=== PATIENT | female | born 1990 | race American Indian/Alaskan Native ===

== ENCOUNTER 2021-02-08 16:49 | Outpatient (CLI) | payer OTHER ==
[2021-02-08] MEDS ORDERED: LACTATED RINGERS 1,000 ML IV ONE (18:55)
[2021-02-08 19:50] VITALS: BP 104/62
[2021-02-08 19:53] LABS: Bacteria,Urine 2+ /HPF (Negative); Bilirubin,Urine NEG (Negative); Blood,Urine NEG (Negative); Color,Urine Yellow (Yellow); Mucus,Urine FEW /HPF; Protein,Urine <15 mg/dL mg/dL (Negative); Urobilinogen,Urine < 2.0 mg/dL (<2.0)
[2021-02-08] MEDS ORDERED: LIDOCAINE-MPF (1%) 10 MG/1 ML VIAL 5 ML INFILTRATI ONE (20:41)
== END 2021-02-08 21:25 | disposition home or self-care (01) ==
LOC: TRG 16:49 → APU 17:03 → TRG 21:25
PROVIDERS: ATTEND Obstetrics & Gynecology
DX: O26.853 Spotting complicating pregnancy, third trimester (principal); Z3A.35 35 weeks gestation of pregnancy
CPT/HCPCS: 59025; 81001; 87086; J0696

== ENCOUNTER 2021-03-09 11:00 | Outpatient (CLI) | payer OTHER ==
[2021-03-09 06:21] VITALS: BP 104/74
[2021-03-09 07:14] LABS: Hematocrit 34.5 % (30.3-42.9); Hemoglobin 11.8 gm/dl (10.1-14.3); Mean Corpuscular HGB Conc 34 % (30-34); Mean Corpuscular Volume 83 fl (79-97); Platelet Count 206 K/mm3 (140-440); Red Blood Count 4.15 M/mm3 (3.65-5.03)
--- NOTE | 2021-03-09 08:32 | Ultrasound Report ---
ULTRASOUND BIOPHYSICAL PROFILE ULTRASOUND OB LIMITED INDICATION: wellbeing TECHNIQUE: Transabdominal ultrasound imaging. COMPARISON: None FINDINGS: breathing movement = 2 Gross body movement = 2 tone = 2 Qualitative amniotic fluid volume = 2 Total biophysical score = 8/8 Amniotic fluid index is 7.6 cm. Presentation is cephalic. heart rate is 124 beats per minute. IMPRESSION: biophysical profile equals 8/8. Cephalic position. Signer Name: Dave Dominguez Jr, MD Signed: 03/09/2021 8:27 AM Workstation Name: [id number]
[~2021-03-09 11:00] MED LIST: BICITRA ORAL LIQD 30ML PO SCH; FAMOTIDINE 20 MG/2 ML INJ IV SCH; LACTATED RINGERS 1,000 ML IV SCH; METOCLOPRAMIDE 10 MG/2 ML INJ IV SCH; OXYTOCIN DRIP 30 UNITS/500 ML BAG IV SCH
[2021-03-09 12:56] LABS: Platelet Estimate Consistent w Auto; RBC Morphology Normal; Total Cells Counted 100
== END 2021-03-09 23:59 | disposition home or self-care (01) ==
LOC: TRG 11:00 → EDSTATUS 11:30 → TRG 23:59
PROVIDERS: ATTEND Obstetrics & Gynecology
DX: O99.013 Anemia complicating pregnancy, third trimester (principal); O82 Encounter for cesarean delivery without indication; Z3A.39 39 weeks gestation of pregnancy
CPT/HCPCS: 36415; 59025; 76815; 76819; 85007; 85025; G0378

== ENCOUNTER 2021-03-13 07:15 | Inpatient (IN) | payer OTHER ==
[~2021-03-13 07:15] MED LIST changes: -BICITRA ORAL LIQD 30ML PO SCH; -FAMOTIDINE 20 MG/2 ML INJ IV SCH; -LACTATED RINGERS 1,000 ML IV SCH; -METOCLOPRAMIDE 10 MG/2 ML INJ IV SCH; -OXYTOCIN DRIP 30 UNITS/500 ML BAG IV SCH; +WATER FOR IRRIG STERILE 1,500 ML BOTTLE IR ONE
[2021-03-13] MEDS ORDERED: OXYTOCIN 10 UNIT/1 ML INJ IM PRN (08:12)
[2021-03-13] MEDS ORDERED: miSOPROStol 200 MCG TAB PR PRN (08:12)
[2021-03-13] MEDS ORDERED: NALOXONE 0.4 MG/1 ML INJ IV PRN ×2 (08:12→22:45)
[2021-03-13] MEDS ORDERED: METHYLERGONOVINE MALEATE 0.2 MG/ML VIAL IM PRN (08:12)
[2021-03-13] MEDS ORDERED: TERBUTALINE 1 MG/1 ML INJ SUB-Q PRN (08:12)
[2021-03-13] MEDS ORDERED: LIDOCAINE (2%) 20 MG/1 ML VIAL 20 ML MDV INFILTRATI NR (08:12)
[2021-03-13] MEDS ORDERED: LOPERAMIDE 2 MG CAP PO PRN (08:12)
[2021-03-13] MEDS ORDERED: ONDANSETRON 4 MG/2 ML INJ IV PRN ×2 (08:30→22:45)
[2021-03-13] MEDS ORDERED: fentaNYL 100 MCG/2 ML INJ IV PRN (08:30)
[2021-03-13] MEDS ORDERED: CARBOPROST TROMETHAMINE 250 MCG/1 ML INJ IM PRN (08:30)
[2021-03-13] MEDS ORDERED: ePHEDrine SULFATE 50 MG/1 ML INJ IV PRN ×2 (08:30→11:31)
[2021-03-13] MEDS ORDERED: BUTORPHANOL 2 MG/1 ML INJ IV PRN (08:30)
[2021-03-13] MEDS ORDERED: ACETAMINOPHEN 325 MG TAB PO PRN (08:30)
[2021-03-13] MEDS ORDERED: OXYTOCIN DRIP 30 UNITS/500 ML BAG IV SCH ×3 (09:00→23:00)
[2021-03-13] MEDS: LACTATED RINGERS 1,000 ML IV SCH ×2 (09:37→17:23)
[2021-03-13 09:52] LABS: Hematocrit 37.3 % (30.3-42.9); Mean Corpuscular HGB Conc 35 % (30-34); Mean Corpuscular Volume 83 fl (79-97); Platelet Count 216 K/mm3 (140-440); Red Blood Count 4.48 M/mm3 (3.65-5.03); Red Cell Distribution Width 16.8 % (13.2-15.2)
[2021-03-13] MEDS ORDERED: NALOXONE 2 MG/2 ML INJ IV PRN (11:31)
[2021-03-13] MEDS: fentaNYL-BUPIV 2 MCG/ML-0.125% 200 MCG/100 ML BAG EPIDURAL SCH ×2 (12:45→21:25)
--- NOTE | 2021-03-13 13:23 | Anesthesia Consultation ---
Anesthesia Consult and Med Hx Date of service: 03/13/21 - Airway Anesthetic Teeth Evaluation: Good ROM Head & Neck: Adequate Mental/Hyoid Distance: Adequate Mallampati Class: Class II Intubation Access Assessment: Good - Pulmonary Exam CTA: Yes - Cardiac Exam Cardiac Exam: RRR - Pre-Operative Health Status ASA Pre-Surgery Classification: ASA2 Proposed Anesthetic Plan: Epidural - Pulmonary Hx Smoking: No Hx Asthma: No Hx Respiratory Symptoms: No SOB: No COPD: No Home Oxygen Therapy: No Hx Pneumonia: No Hx Sleep Apnea: No - Cardiovascular System Hx Hypertension: No Hx Coronary Artery Disease: No Hx Heart Attack/AMI: No Hx Angina: No Hx Percutaneous Transluminal Coronary Angioplasty (PTCA): No Hx Cardia Arrhythmia: No Hx Pacemaker: No Hx Internal Defibrillator: No Hx Valvular Heart Disease: No Hx Heart Murmur: No Hx Peripheral Vascular Disease: No - Central Nervous System Hx Neuromuscular Disorder: No Hx Seizures: No CVA: No Hx Back Pain: Yes Hx Psychiatric Problems: No - Gastrointestinal Hx Ulcer: No Hx Gastroesophageal Reflux Disease: Yes - Endocrine Hx Renal Disease: No Hx End Stage Renal Disease: No Hx Cirrhosis: No Hx Liver Disease: No Hx Insulin Dependent Diabetes: No Hx Non-Insulin Dependent Diabetes: No Hx Thyroid Disease: No Hx Hypothyroidism: No Hx Hyperthyroidism: No - Hematic Hx Anemia: No Hx Sickle Cell Disease: No - Other Systems Hx Alcohol Use: No Hx Substance Use: No Hx Cancer: No Hx Obesity: No
--- NOTE | 2021-03-13 13:24 | Progress Note ---
Labor Epidural - Labor Epidural Start Time: 11:45 Stop Time: 11:56 Performed by:: JOZEF TIRADO Procedure: Patient is requesting a laboring epidural for laboring pain. Patient IDed, H&P reviewed, all questions and concerns were answered, and consent was signed. Timeout was performed at bedside. Patient in sitting position. Sterile prep and drape was performed. [3] ml of 1% lidocaine skin wheal at L[3]- L [4]. 18- gauge Bridgette epidural needle was advanced to loss of resistance with saline technique 6cm. Negative CSF negative blood. Epidural catheter advanced to [10] centimeters. [NEGATIVE] Aspiration [NEGATIVE] test dose. Sterile dressing applied. Patient tolerated procedure.
--- NOTE | 2021-03-13 13:24 | History and Physical Report ---
History of Present Illness Date of examination: 03/13/21 Date of admission: 03/13/21 08:12 Chief complaint: contractions History of present illness: Pt is a 30 year old female BREE 03/10/21 at 40w3d who presents with regular painful contractions and Category II tracing. She has had care at [facility] since 11 wks complicated by genital herpes, hypoglycemic episodes, eczema, LSIL pap, and sickle cell trait. She is GBS negative. Past History Past Medical History: other (Eczema ) Past Surgical History: no surgical history [employer] History: herpes (without lesion or prodrome ) Family/Genetic History: none Social history: no significant social history - Obstetrical History Expected Date of Delivery: 03/10/21 Actual Gestation: 40 Week(s) 3 Day(s) : 2 Para: 0 Hx # Term Pregnancies: 0 Number of Pregnancies: 0 Spontaneous Abortions: 0 Induced : 1 Number of Living Children: 0 Medications and Allergies Allergies Allergy/AdvReac Type Severity Reaction Status Date / Time No Known Allergies Allergy Verified 02/08/21 18:52 Home Medications Medication Instructions Recorded Confirmed Last Taken Type Pnv,Calcium 72/Iron/Folic Acid 1 each PO DAILY 03/13/21 03/13/21 03/11/21 20:00 History [ Plus Tablet] Active Meds: Active Medications Acetaminophen (Acetaminophen 325 Mg Tab) 650 mg PO Q4H PRN PRN Reason: Pain, Mild (1-3) Butorphanol Tartrate (Butorphanol 2 Mg/1 Ml Inj) 1 mg IV Q2H PRN PRN Reason: Pain, Moderate(4-6) LABOR PAIN Carboprost Tromethamine (Carboprost Tromethamine 250 Mcg/1 Ml Inj) 250 mcg IM ONCE PRN PRN Reason: Uterine Bleeding Stop: 03/14/21 08:29 Ephedrine Sulfate (Ephedrine Sulfate 50 Mg/1 Ml Inj) 10 mg IV Q2M PRN PRN Reason: Hypotension Fentanyl (Fentanyl 100 Mcg/2 Ml Inj) 100 mcg IV Q2H PRN PRN Reason: Pain,Severe (7-10) LABOR PAIN Last Admin: 03/13/21 09:38 Dose: 100 mcg Documented by: Oxytocin/Sodium Chloride (Pitocin/Ns 30 Unit/500ml) 30 units in 500 mls @ 2 mls/hr IV TITR KIRAN; Protocol Last Admin: 03/13/21 12:59 Dose: 4 ml/hr, 4 mls/hr Documented by: Lactated Ringer's (Lactated Ringers) 1,000 mls @ 125 mls/hr IV DIRECT KIRAN Last Admin: 03/13/21 09:37 Dose: 999 mls/hr Documented by: Oxytocin/Sodium Chloride (Pitocin/Ns 30 Unit/500ml) 30 units in 500 mls @ 40 mls/hr IV TITR KIRAN; Protocol Fentanyl/Bupivacaine/Sodium Chlor (Fentanyl-Bupiv 2 Mcg/Ml-0.125%) 200 mcg in 100 mls @ 12 mls/hr EPIDURAL TITR KIRAN; Protocol Last Admin: 03/13/21 12:45 Dose: 12 mls/hr Documented by: Lidocaine (Lidocaine (2%) 20 Mg/1 Ml Vial 20 Ml Mdv) 20 ml INFILTRATI ONCE NR Stop: 03/13/21 20:00 Loperamide HCl (Loperamide 2 Mg Cap) 2 mg PO ONCE PRN PRN Reason: give with Hemabate Stop: 03/14/21 08:11 Methylergonovine Maleate (Methylergonovine Maleate 0.2 Mg/Ml Vial) 0.2 mg IM ONCE PRN PRN Reason: Uterine Bleeding Stop: 03/14/21 08:11 Mineral Oil (Mineral Oil 30 Ml Oral Liqd) 30 ml PO QHS PRN PRN Reason: Constipation Misoprostol (Misoprostol 200 Mcg Tab) 800 mcg IA ONCE PRN PRN Reason: Uterine Bleeding Stop: 03/14/21 08:11 Naloxone HCl (Naloxone 2 Mg/2 Ml Inj) 0.2 mg IV Q5M PRN PRN Reason: Respiratory sedation Ondansetron HCl (Ondansetron 4 Mg/2 Ml Inj) 4 mg IV Q8H PRN PRN Reason: Nausea And Vomiting Oxytocin (Oxytocin 10 Unit/1 Ml Inj) 10 unit IM ONCE PRN PRN Reason: Uterine Bleeding Stop: 03/14/21 08:11 Terbutaline Sulfate (Terbutaline 1 Mg/1 Ml Inj) 0.25 mg SUB-Q ONCE PRN PRN Reason: Hyperstimulation/Hypertonicity Stop: 03/14/21 08:11 Review of Systems All systems: negative - Vital Signs Vital signs: Vital Signs Pulse BP Pulse Ox 88 98/72 84 03/13/21 07:47 03/13/21 07:47 03/13/21 07:47 Temp Pulse Resp BP Pulse Ox 98.1 F 95 H 20 88/54 94 03/13/21 11:59 03/13/21 13:20 03/13/21 11:59 03/13/21 13:18 03/13/21 13:20 - Physical Exam Breasts: Positive: deferred Abdomen: Positive: soft (gravid ) Uterus: Positive: enlarged (gravid ) Extremities: Positive: normal - Obstetrical FHR: category 2 Cervical Dilatation: 4 Uterine Contraction Pattern: Regular Uterine Tone Measurement Phase: Resting Uterine Contraction Intensity: Strong/Firm Results Result Diagrams: 03/13/21 09:00 Abnormal lab results 03/13/21 03/13/21 Range/Units 09:00 09:00 MCHC 35 H (30-34) % RDW 16.8 H (13.2-15.2) % Syphilis IgG Antibody Reactive A (NonReactive) All other labs normal. Assessment and Plan A: IUP at 40w3d Active Labor Genital Herpes Eczema LSIL pap Sickle cell trait GBS negative P: Admit to labor and delivery Routine intrapartum care Valtrex while laboring Closely monitor maternal and status
[2021-03-13] MEDS ORDERED: MINERAL OIL 30 ML ORAL LIQD PO PRN (22:00)
[2021-03-13] MEDS ORDERED: FAMOTIDINE 20 MG/2 ML INJ IV ONE (22:06)
[2021-03-13] MEDS ORDERED: BICITRA ORAL LIQD 30ML PO ONE (22:06)
[2021-03-13] MEDS ORDERED: METOCLOPRAMIDE 10 MG/2 ML INJ IV ONE (22:06)
[2021-03-13] MEDS ORDERED: LACTATED RINGERS 1,000 ML IV SCH (22:15)
[2021-03-13] MEDS ORDERED: LIDOCAINE MPF (2%) 20 MG/1 ML VIAL 5 ML ONE ×3 (22:28)
--- NOTE | 2021-03-13 22:43 | Anesthesia Day of Surgery ---
Anesthesia Day of Surgery - Day of Surgery Patient Examined: Yes Patient H&P Reviewed: Yes Patient is NPO: Yes Beta Blockers: No Cardiac Clearance: No Pulmonary Clearance: No Jose David's Test: Negative
[2021-03-13] MEDS ORDERED: HYDROmorphone 1 MG/1 ML INJ IV PRN (22:45)
[2021-03-13] MEDS ORDERED: ceFAZolin/Water 2 GM/20 ML 2 GM/20 ML SYRINGE IV NR (23:00)
[2021-03-13] MEDS ORDERED: SODIUM CHLORIDE 0.9% IRR 1,500 ML BOTTLE IR ONE (23:38)
[2021-03-13] MEDS ORDERED: KETOROLAC 30 MG/1 ML INJ ONE (23:54)
[2021-03-13] MEDS ORDERED: ONDANSETRON 4 MG/2 ML INJ ONE ×2 (23:54)
[2021-03-14] MEDS ORDERED: OXYTOCIN 10 UNIT/1 ML INJ ONE (00:33)
[2021-03-14] MEDS ORDERED: LACTATED RINGERS 1,000 ML ONE (00:57)
[2021-03-14] MEDS ORDERED: BUPIVACAINE/PF (0.5%) 5 MG/1 ML 30 ML VIAL INFILTRATI ONE (01:14)
--- NOTE | 2021-03-14 01:52 | Procedure Note ---
OB Delivery Note - Delivery Date of Delivery: 03/14/21 Surgeon: DESTINEY SANDOVAL - Section Preop diagnosis: arrest of descent Postop diagnosis: same section procedure: section, primary low transverse Disposition: PACU Complications: intra-op hemorrhage Narrative: Please see operative report - A at 1 minute: 7 at 5 minutes: 8 Infant Gender: Male (3310g (7lb 5oz) @ 0016 am)
--- NOTE | 2021-03-14 01:53 | Operative Report ---
Operative Report Operative Report: Date of procedure: March 14, 2021 Preoperative diagnosis: 1) IUP at 40w3d 2) Arrest of Descent Postoperative diagnosis: Same 3) Cephalopelvic Disproportion 4) Intraoperative hemorrhage Procedure: Primary classical section Surgeon: Tanika Vicente M.D. Anesthesia: Regional Findings: 1) Viable male , Apgars 7 and 8, weight 3310 g, (7 lb 5 oz) in cephalic presentation 2) Normal-appearing uterus ovaries and tubes Estimated blood loss: 1205 mL by QBL IV fluids: 800 mL Urine output: 400 mL, blood tinged prior to the procedure, and blood tinged at the end of the procedure Drains: [place] to gravity Specimens: None Complications:None. Counts correct x 3 Disposition: Stable to PACU Indication for procedure: Pt is a 30 year old at 40w3d who presented in active labor, progressed to complete dilation and +1 station and arrested there despite adequate contractility. The decision was made to proceed with delivery. Operation in detail: After the risks, benefits, alternatives and complications were explained to the patient she gave informed consent for the procedure. She was subsequently taken to the operating room where regional anesthesia was noted to be adequate. She was placed in the dorsal supine position with leftward tilt and prepped and draped in a normal sterile fashion. heart tones were noted prior to incision. A timeout was performed. A Pfannenstiel skin incision was made with the knife and carried down to the layer of the fascia with the Bovie. The fascia was incised in the midline and the fascial incision was extended bilaterally with the Bovie. The fascial incision was then stretched. The rectus muscles were then in the midl ine and partially transected for adequate visualization. The peritoneum was then entered bluntly. The peritoneal incision was extended with good visualization of the bladder. The peritoneal incision was then stretched. An Mio retractor was placed. The bladder blade was then placed. A transverse incision was made in the lower uterine segment with a knife and extended bilaterally with the bandage scissors with the right shoulder visible at the hysterotomy. The head was noted to be wedged in the pelvic despite multiple attempts to deliver it including the assistance of a gloved vaginal hand. At this time, the knife was used to create a vertical infraumbilical incision and a vertical uterine incision. The buttocks and legs were delivered, followed by delivery of the torso and head. bulb suctioned at delivery. Cord clamped and cut. handed to NICU staff in attendance. Cord blood was collected. The placenta was then delivered manually. The uterus was then exteriorized and cleared of all clots and debris. The vertical portion of the hysterotomy was reapproximated in 3 layers of 0 Monocryl in a running locked fashion. The horizontal portion hysterotomy was then reapproximated with 0 Monocryl in a running locked fashion, followed by a second imbricated layer of the same suture. The hysterotomy was inspected and hemostasis was noted. The gutters were irrigated and cleared of all clots and debris. The hysterotomy was again inspected and noted to be hemostatic. The Mio retractor was removed. The uterus was placed back into the peritoneal cavity. Surgicel was placed over the hysterotomy. Intercede was placed over the anterior surface of the uterus. Surgicel was placed over the rectus muscles. The inferior portion of the rectus muscles were reapproximated by a mattress suture of 0 Monocryl. The vertical portion of the fascia was reapproximated with 0 PDS in a running fashion. The horizontal portion of the fascia was reapproximated with 0 PDS in a running fashion. The skin was reapproximated with maribeth. The incision was then covered with a pressure dressing. The procedure was then ended. The patient tolerated the procedure well and was taken to the PACU in stable condition. All instrument, lap, and needle counts were correct 3. This patient should not labor in future pregnancies, and should be delivered by repeat section.
[2021-03-14] MEDS ORDERED: LANOLIN/ZINC/DIMETHICONE (LANSINOH) 7 GM TP PRN (03:52)
[2021-03-14] MEDS ORDERED: NALOXONE 0.4 MG/1 ML INJ IV PRN (03:52)
[2021-03-14] MEDS ORDERED: OXYTOCIN DRIP 30 UNITS/500 ML BAG IV SCH (03:52)
[2021-03-14] MEDS ORDERED: SIMETHICONE 80 MG CHEW TAB PO PRN (03:52)
[2021-03-14] MEDS ORDERED: MAGNESIUM HYDROXIDE (MOM) ORAL LIQD UDC PO PRN (03:52)
[2021-03-14] MEDS ORDERED: D5W/LACTATED RINGERS 1,000 ML IV SCH (03:52)
[2021-03-14] MEDS ORDERED: WITCH HAZEL/ GLYCERIN PAD TP PRN (03:52)
[2021-03-14] MEDS: HYDROmorphone 1 MG/1 ML INJ IV PRN ×4 (04:02→19:58)
[2021-03-14] MEDS: ceFAZolin/NS 1 GM/50 ML 1 GM/50 ML BAG IV SCH ×2 (05:54→15:45)
[2021-03-14 18:51] LABS: Hematocrit 27.5 % (30.3-42.9); Hemoglobin 9.1 gm/dl (10.1-14.3)
--- NOTE | 2021-03-14 23:45 | Post Anesthesia Evaluation ---
- Post Anesthesia Evaluation Patient Participated: Yes Airway Patent: Yes Stable Respiratory Function: Yes Nausea/Vomiting: No Temp > 96.8F: Yes Pain Manageable: Yes Anesthesia Complications: No Block Receding Appropriately: Yes Patient on Ventilator: No
[2021-03-15] MEDS: HYDROmorphone 1 MG/1 ML INJ IV PRN ×2 (01:51→06:00)
[2021-03-15] MEDS ORDERED: MEASLES, MUMPS & RUBELLA 12,500 UNIT/0.5 ML VACCINE SUB-Q ONE (01:54)
[2021-03-15] MEDS ORDERED: TETANUS,DIPH,PERTUSS(ACELL) VACCINE 0.5 ML SYRINGE IM ONE (06:00)
[2021-03-15] MEDS ORDERED: IRON DEXTRAN COMPLEX 100 MG/2 ML INJ IM NR (07:32)
--- NOTE | 2021-03-15 08:10 | Progress Note ---
Assessment and Plan - Patient Problems (1) Delivery by classical section Current Visit: Yes Status: Acute Plan to address problem: Continue routine PP orders Keep incision clean and dry Ambulate in room and hallways to facilitate gas release Anticipate d/c in 24-48 hrs if stable (2) Anemia Current Visit: Yes Status: Acute Qualifiers: Anemia type: other cause Other causes of anemia: acute posthemorrhagic Qualified Code(s): D62 - Acute posthemorrhagic anemia Plan to address problem: Infed 100mg IM x 1 dose Increase iron rich foods into diet once returned to regular diet Subjective - Subjective Date of service: 03/15/21 Principal diagnosis: S/P primary classical C/S; POD#1 Interval history: Pt is a 30 year old female BREE 03/10/21 at 40w3d who presents with regular painful contractions and Category II tracing. She has had care at [facility] since 11 wks complicated by genital herpes, hypoglycemic episodes, eczema, LSIL pap, and sickle cell trait. She is GBS negative. Progressed to complete dilation and +1 station and arrested there despite adequate contractility. The decision was made to proceed with delivery. Patient reports: appetite normal, voiding normally, pain well controlled (with medications), ambulating normally (needs assistance, encouraged to stand straight up when ambulating and walk inside room and in hallways), no flatus, no bowel movement [place]: bottle feeding Objective - Vital Signs Latest vital signs: Vital Signs Temp Pulse Resp BP BP Pulse Ox Pulse Ox 03/15/21 06:30 18 03/15/21 06:00 18 03/15/21 02:21 18 03/15/21 01:51 18 03/15/21 00:30 98.6 F 75 16 102/69 03/14/21 20:28 18 03/14/21 20:19 98.0 F 105 H 18 112/59 97 03/14/21 19:58 18 03/14/21 19:31 100 03/14/21 16:08 98.6 F 96 H 22 102/64 99 03/14/21 12:10 98 F 105 H 20 102/62 Intake and Output 03/14/21 03/15/21 03/15/21 23:59 07:59 15:59 Intake Total 840 200 Output Total 900 Balance -60 200 Intake: Oral 480 200 Intake, Free Water 360 Output: Urine 900 Indwelling Catheter 200 Void 700 Other: Total, Intake Amount 240 200 Total, Output Amount 350 # Voids Void 2 1 - Exam Breasts: Present: normal Cardiovascular: Present: Regular rate Lungs: Present: Normal air movement Abdomen: Present: soft, tenderness Uterus: Present: firm, fundal height below umbilicus (U-2) Extremities: Present: normal Deep Tendon Reflex Grade: Normal +2 Incision: Present: dressed (no shadow drainage or bleeding noted) - Labs Labs: Abnormal lab results 03/14/21 Range/Units 18:31 Hgb 9.1 L D (10.1-14.3) gm/dl Hct 27.5 L D (30.3-42.9) %
[2021-03-15] MEDS: oxyCODONE /ACETAMINOPHEN 5-325MG TAB PO PRN ×3 (08:12→23:08)
[2021-03-16] MEDS: oxyCODONE /ACETAMINOPHEN 5-325MG TAB PO PRN ×2 (05:48→13:04)
--- NOTE | 2021-03-16 08:38 | Progress Note ---
Assessment and Plan A: POD #2 s/p primary classical section at term Acute blood loss anemia P: Routine postop care Consider discharge in the next 24 hours Subjective - Subjective Date of service: 03/16/21 Principal diagnosis: S/P primary classical C/S; POD#2 Interval history: No overnight events. Plus flatus. No bowel movement. Ambulating without difficulty. Patient reports: appetite normal, voiding normally, pain well controlled, flatus, ambulating normally, no bowel movement [place]: doing well Objective - Vital Signs Latest vital signs: Vital Signs Temp Pulse Resp BP Pulse Ox Pulse Ox 03/16/21 07:31 97.4 F L 86 18 94/62 99 03/16/21 05:48 20 03/16/21 00:58 98.4 F 94 H 20 101/64 100 03/15/21 23:08 20 03/15/21 19:45 97 03/15/21 16:11 98.3 F 103 H 18 99/64 100 Intake and Output 03/15/21 03/16/21 03/16/21 22:59 06:59 14:59 Intake Total 1080 120 Balance 1080 120 Intake: Oral 240 120 Intake, Free Water 840 Other: Total, Intake Amount 240 120 # Voids Void 2 1 - Exam Breasts: Present: deferred Abdomen: Present: soft Uterus: Present: fundal height at umbilicus Extremities: Present: normal Incision: Present: dressed
[2021-03-16] MEDS: MAGNESIUM HYDROXIDE (MOM) ORAL LIQD UDC PO SCH (13:09)
[2021-03-16] MEDS: IBUPROFEN 600 MG TAB PO SCH ×2 (13:09→22:36)
[2021-03-17] MEDS: IBUPROFEN 600 MG TAB PO SCH ×3 (06:10→17:00)
[2021-03-17] MEDS: oxyCODONE /ACETAMINOPHEN 5-325MG TAB PO PRN (10:23)
[2021-03-17] MEDS: MAGNESIUM HYDROXIDE (MOM) ORAL LIQD UDC PO SCH ×2 (13:16→16:51)
--- NOTE | 2021-03-17 15:54 | Discharge Summary ---
Providers - Providers Date of Admission: 03/13/21 08:12 Date of discharge: 03/17/21 Attending physician: RAMIREZ LINDSEY 03/14/21 03:52 Consult to Billing Specialist [CONS] Routine Reason For Exam: Primary care physician: RAMIREZ LINDSEY Hospitalization Reason for admission: active labor Delivery: Procedure: primary low transverse Incision: normal, dry, intact complications: none Discharge diagnosis: IUP at term delivered [place] baby: male Hospital course: post op period has been unremarkable Condition at discharge: Good Disposition: DC-01 TO HOME OR SELFCARE Plan - Discharge Medications Prescriptions: Docusate Sodium [Colace] 100 mg PO BID PRN #60 capsule PRN Reason: Constipation Ferrous Sulfate [Feosol 325 MG tab] 325 mg PO BID #60 tablet Ibuprofen [Motrin] 600 mg PO Q6H PRN #30 tablet PRN Reason: Pain oxyCODONE /ACETAMINOPHEN [Percocet 5/325] 1 tab PO Q6HR PRN #30 tablet PRN Reason: Pain - Provider Discharge Summary Activity: routine, no sex for 6 weeks, no heavy lifting 4 weeks, no strenuous exercise Diet: routine Instructions: routine Additional instructions: [] Smoking cessation referral if applicable(refer to patient education folder for contact #) [] Refer to [facility] Booklet Call your doctor immediately for: * Fever > 100.5 * Heavy vaginal bleeding ( >1 pad per hour) * Severe persistent headache * Shortness of breath * Reddened, hot, painful area to leg or breast * Drainage or odor from incision. * Keep incision clean and dry at all times and follow doctor's instructions regarding bathing/showering - Follow up plan Follow up: RAMIREZ LINDSEY MD [Primary Care Provider] - 14 Days
--- NOTE | 2021-03-17 15:56 | Progress Note ---
Assessment and Plan POD 3 s/p primary classical ltcs. Doing well. Plan for discharge on today. Subjective - Subjective Date of service: 03/17/21 Principal diagnosis: S/P primary classical C/S; POD#2 Patient reports: appetite normal, voiding normally, pain well controlled, flatus, ambulating normally : doing well Objective - Vital Signs Latest vital signs: Vital Signs Temp Pulse Resp BP Pulse Ox 03/17/21 07:17 97.9 F 79 16 98/57 100 03/17/21 01:04 97.6 F 86 20 111/70 100 03/16/21 22:36 14 Intake and Output 03/17/21 03/17/21 03/17/21 06:59 14:59 22:59 Intake Total 360 240 Balance 360 240 Intake: Oral 360 240 Other: Total, Intake Amount 120 120 # Voids Void 1 1 # Bowel Movements 1 - Exam Breasts: Present: deferred Cardiovascular: Present: Regular rate, Normal S1, Normal S2 Lungs: Present: Clear to auscultation, Normal air movement Abdomen: Present: normal appearance, soft, normal bowel sounds Uterus: Present: normal, firm Incision: Present: normal, dry, intact
[2021-03-17 16:17] VITALS: BP 100/68
== END 2021-03-17 18:25 | disposition home or self-care (01) | DRG 787 ==
LOC: APU 07:15 → TRG 07:15 → APU 07:16 → LD 08:12 → TRG 08:12 → LD 09:37 → OB 03-14 03:51
PROVIDERS: ADMIT Obstetrics & Gynecology; ATTEND Obstetrics & Gynecology
PROC: 10D00Z1 Extraction of Products of Conception, Low, Open Approach (ICD-10-PCS; principal; 2021-03-14)
PROC: 3E0234Z Introduction of Serum, Toxoid and Vaccine into Muscle, Percutaneous Approach (ICD-10-PCS; 2021-03-15)
PROC: 3E0134Z Introduction of Serum, Toxoid and Vaccine into Subcutaneous Tissue, Percutaneous Approach (ICD-10-PCS; 2021-03-15)
DX: O33.9 Maternal care for disproportion, unspecified (principal); D62 Acute posthemorrhagic anemia; O98.32 Other infections with a predominantly sexual mode of transmission complicating childbirth; O72.1 Other immediate postpartum hemorrhage; Z20.822 Contact with and (suspected) exposure to COVID-19; O99.62 Diseases of the digestive system complicating childbirth; K21.9 Gastro-esophageal reflux disease without esophagitis; O99.02 Anemia complicating childbirth; D57.3 Sickle-cell trait; Z3A.40 40 weeks gestation of pregnancy; Z37.0 Single live birth; Z23 Encounter for immunization; A60.00 Herpesviral infection of urogenital system, unspecified
CPT/HCPCS: 36415; 59025; 85014; 85018; 85027; 86592; 86593; 86780; 86850; 86900; 86901; 90471; 90715; 99211; G0378; C1765; G0463; J0690; J1170; J1885; J2405; J2590; J2765; J3010; J3490; J7120; U0003